=== PATIENT | female | born 2000 ===

== ENCOUNTER 2021-08-18 01:16 | Emergency (ER) | payer OTHER ==
[~2021-08-18] VITALS: Ht 165.6 cm; Wt 90.7 kg
[2021-08-18 01:25] VITALS: BP 142/88
[2021-08-18] MEDS ORDERED: PRD20T PO (01:57)
[2021-08-18] MEDS ORDERED: EPIN0.3P3 IJ (01:57)
[2021-08-18] MEDS ORDERED: FAMO40TA72 PO (01:57)
--- NOTE | 2021-08-18 01:57 | ED Integumentary General ---
General Chief Complaint: Allergic Reaction Stated Complaint: HIVES,ALLERGIC RXN Nursing Triage Note: Pt arrives via POV from home for c/o hives/itching onset intermittently over the last 24hrs. Pt reports 24hrs ago, she began having itching/red hives over her trunk et upper body; pt states she was working with wood prior to this; pt took a dose from her epipen et the symptoms went away. Pt states tonight she had symptoms return, denies working with wood today; denies new soaps or contact with new allergins. Pt reports only known allergies are pollen et trees. Airway patent, respirations even et unlabored. Allergies and Home Medications Allergies Coded Allergies: No Known Drug Allergies (Unverified , 08/18/21) Past Qudkbpn-Kryycp-Tbgeso Hx Patient Social History Tobacco Use?: No Use of E-Cig and/or Vaping dev: No Substance use?: No Alcohol Use?: No Pt feels they are or have been: No Immunizations Up To Date Influenza Vaccine Up-to-Date: No; Not Current Past Medical History Last Menstrual Period: Aug 18, 2021 Physical Exam Vital Signs Vital Signs - First Documented 08/18/21 01:25 Temp 36.8 Pulse 85 Resp 18 B/P (MAP) 142/88 (106) Pulse Ox 98 O2 Delivery Room Air Capillary Refill : Less Than 3 Seconds Progress/Results/Core Measures Results/Orders My Orders Orders - NINA LINN DO Prednisone Tablet (Deltasone Tablet) (08/18/21 02:00) Famotidine Tablet (Pepcid Tablet) (08/18/21 02:00) Vital Signs/I&O 08/18/21 08/18/21 01:25 01:25 Temp 36.8 Pulse 85 Resp 18 B/P (MAP) 142/88 (106) Pulse Ox 98 O2 Delivery Room Air Room Air Blood Pressure Mean: 106 Departure Impression Primary Impression: Urticaria of unknown origin Disposition: 01 HOME, SELF-CARE Condition: Stable Departure-Patient Inst. Decision time for Depature: 01:55 Referrals: GRIFFIN HILLS DO (PCP/Family) Primary Care Physician GENARO MOORE MD Patient Instructions: Hives (DC), Topical Corticosteroid Medicines Add. Discharge Instructions: LOTS OF CLEAR LIQUIDS AVOID ANY NEW FOODS, DRINKS, ETC. TAKE 2 CLARITIN DAILY FOR HIVES, THEN RESUME ONE PILL A DAY FOLLOW UP WITH DR. HILLS OR [facility] IN 1-2 DAYS IF NO BETTER RETURN TO ER IF SYMPTOMS WORSEN All discharge instructions reviewed with patient and/or family. Voiced understanding. Scripts Epinephrine (Epipen 2-Jose) 0.3 Mg/0.3 Ml Auto.injct 0.3 MG IJ PRN, #1 EA Prov: NINA LINN DO 08/18/21 Prednisone (Prednisone) 20 Mg Tab 40 MG PO DAILY, #6 TAB 0 Refills Prov: NINA LINN DO 08/18/21 Famotidine (Pepcid) 40 Mg Tablet 40 MG PO DAILY, #10 TAB Prov: NINA LINN DO 08/18/21 NINA LINN DO Aug 18, 2021 01:57
[2021-08-18] MEDS ORDERED: FAMOTIDINE 20 MG (PEPCID) TABLET PO ONE (02:00)
[2021-08-18] MEDS ORDERED: predniSONE 20 MG TAB PO ONE (02:00)
== END 2021-08-18 02:03 | disposition home or self-care (01) ==
LOC: ER 01:23
DX: L50.9 Urticaria, unspecified (principal)
CPT/HCPCS: 99283

== ENCOUNTER 2022-03-29 16:43 | Emergency (ER) | payer OTHER, MEDICAID ==
[~2022-03-29] VITALS: Ht 162.5 cm; Wt 90.7 kg
[~2022-03-29 16:43] MED LIST: EPIN0.3P3 IJ; FAMO40TA72 PO; PRD20T PO
[2022-03-29] MEDS ORDERED: ORPHENADRINE 60 MG/2 ML (NORFLEX) AMP (ED ONLY) IM ONE (17:15)
[2022-03-29] MEDS ORDERED: KETOROLAC 60 MG/2 ML VIAL IM ONE (17:15)
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
[2022-03-29 18:15] VITALS: BP 132/78
== END 2022-03-29 18:15 | disposition home or self-care (01) ==
LOC: EDUNIT# 16:43 → ER 16:45
DX: U07.1 COVID-19 (principal); M54.6 Pain in thoracic spine; M54.2 Cervicalgia; M54.50 Low back pain, unspecified; V43.52XA Car driver injured in collision with other type car in traffic accident, initial encounter; Y92.410 Unspecified street and highway as the place of occurrence of the external cause
CPT/HCPCS: 87636; 99284